=== PATIENT | female | born 1950 | race Two or more races ===

== ENCOUNTER 2023-02-18 18:57 | Emergency (ER) | payer MEDICARE, OTHER ==
[~2023-02-18] VITALS: Ht 165.1 cm; Wt 75.0 kg
[2023-02-18] MEDS ORDERED: KETOROLAC TROMETH 30 MG/ML 1ML VIAL IV ONE (20:00)
[2023-02-18] MEDS ORDERED: ONDANSETRON HCL 4 MG/2 ML VIAL IV ONE (20:00)
[2023-02-18 20:23] LABS: Basophils # (auto) 0.1 10 ^3/uL (0-0.2); Eosinophils # (auto) 0.5 10 ^3/uL (0-0.8); Eosinophils % (auto) 4.6 % (0.0-7.0); Hematocrit 41.5 % (36.0-46.0); Lymphocytes # (auto) 2.8 10 ^3/uL (0.4-5.4); Lymphocytes % (auto) 26.9 % (10.0-50.0); Mean Corpuscular Hemoglobin 30.9 pg (28.0-32.0); Mean Corpuscular Hgb Conc. 33.7 g/dL (32.0-36.0); Mean Corpuscular Volume 91.8 fL (80.0-100.0); Monocytes # (auto) 1.1 10 ^3/uL (0-1.3); Monocytes % (auto) 10.8 % (0.0-12.0); Neutrophils # (auto) 5.8 10 ^3/uL (1.6-8.6); Neutrophils % (auto) 56.7 % (37.0-80.0); Red Blood Cells 4.52 10^6/uL (4.0-5.20); Red Cell Distribution Width 16.5 % (11.8-14.3); White Blood Cell 10.3 10^3/uL (4.4-10.8)
[2023-02-18 20:31] LABS: Albumin 3.5 g/dL (3.4-5.0); Calcium 9.1 mg/dL (8.5-10.1); Potassium 3.4 mmol/L (3.5-5.1)
[2023-02-18 20:34] LABS: BUN/Creatinine Ratio 18.6 (10.0-20.0); Bilirubin, Total 0.5 mg/dL (0.2-1.0); Total Protein 7.3 g/dL (6.4-8.2)
[2023-02-18 20:37] LABS: INR 1.03 (0.9-1.15); Partial Thromboplastin Time 28.1 SEC (24.5-34.5)
[2023-02-18] MEDS ORDERED: DOCU-94 PO (21:47)
[2023-02-19 02:00] VITALS: BP 141/69
== END 2023-02-18 21:48 | disposition home or self-care (01) ==
LOC: EDBD 18:57 → ER 18:57
DX: K59.00 Constipation, unspecified (principal); R06.02 Shortness of breath; Z79.01 Long term (current) use of anticoagulants
CPT/HCPCS: 36415; 71045; 74176; 80053; 83880; 84484; 85025; 85610; 85730

== ENCOUNTER 2023-11-01 12:00 | Inpatient (IN) | payer MEDICARE, MEDICAID ==
[~2023-11-01] VITALS: Ht 165.1 cm; Wt 96.0 kg
[~2023-11-01 12:00] MED LIST: DOCU-94 PO
[2023-11-01 12:54] LABS: Basophils # (auto) 0.2 10 ^3/uL (0-0.2); Basophils % (auto) 1.4 % (0.0-2.0); Eosinophils # (auto) 1.1 10 ^3/uL (0-0.8); Eosinophils % (auto) 9.3 % (0.0-7.0); Hematocrit 44.2 % (36.0-46.0); Hemoglobin 14.4 g/dL (12.2-16.2); Lymphocytes # (auto) 2.2 10 ^3/uL (0.4-5.4); Lymphocytes % (auto) 19.2 % (10.0-50.0); Mean Corpuscular Hemoglobin 29.7 pg (28.0-32.0); Mean Corpuscular Hgb Conc. 32.7 g/dL (32.0-36.0); Mean Corpuscular Volume 90.8 fL (80.0-100.0); Monocytes % (auto) 8.9 % (0.0-12.0); Neutrophils % (auto) 61.2 % (37.0-80.0); Nucleated Red Blood Cells % 0.1 %; Red Blood Cells 4.87 10^6/uL (4.0-5.20); Red Cell Distribution Width 14.6 % (11.8-14.3); White Blood Cell 11.5 10^3/uL (4.4-10.8)
[2023-11-01 13:13] LABS: Chloride 110 mmol/L (98-107); Potassium 4.5 mmol/L (3.5-5.1); Sodium 142 mmol/L (136-145)
[2023-11-01 13:14] LABS: Anion Gap 5 (5-15); Carbon Dioxide 27 mmol/L (20-30)
[2023-11-01] MEDS: CLINDAMYCIN 600MG IV 50 ML IV ONE (13:14)
[2023-11-01 13:15] LABS: Calcium 9.7 mg/dL (8.5-10.1)
[2023-11-01 13:19] LABS: BUN/Creatinine Ratio 19.4 (10.0-20.0); Blood Urea Nitrogen 14 mg/dL (9-23); Glucose 98 mg/dL (74-106)
[2023-11-01 15:22] VITALS: PULSE 67; RESP 24; O2SAT 95
[2023-11-01] MEDS ORDERED: MET50T PO (15:29)
[2023-11-01] MEDS ORDERED: ATOR10TA52 PO (15:29)
[2023-11-01] MEDS ORDERED: CLON0.1T PO (15:29)
[2023-11-01] MEDS ORDERED: CEPH500C PO (15:29)
[2023-11-01] MEDS ORDERED: HYDR-2792 PO (15:29)
[2023-11-01] MEDS ORDERED: BACL10TA PO (15:29)
[2023-11-01] MEDS ORDERED: LISI40TA16 PO (15:29)
[2023-11-01] MEDS ORDERED: AMLO1TAB23 PO (15:29)
[2023-11-01] MEDS ORDERED: ONDA-188 PO (15:29)
[2023-11-01] MEDS ORDERED: HYDROcodone-ACET 5/325MG TAB PO PRN (15:30)
[2023-11-01] MEDS ORDERED: DOCUSATE SOD 100 MG CAP PO PRN (15:30)
[2023-11-01] MEDS ORDERED: hydrALAZINE HCL 20 MG/ML VL IV PRN (15:30)
[2023-11-01] MEDS ORDERED: ACETAMINOPHEN 325 MG TAB PO PRN (15:30)
[2023-11-01] MEDS ORDERED: NITROGLYCERIN 0.4 MG SL TAB SL PRN (15:30)
[2023-11-01] MEDS ORDERED: MORPHINE SULFATE INJ 2 MG/ml SYRG IV PRN (15:30)
[2023-11-01] MEDS: cloNIDine HCL 0.1 MG TAB PO ONE (15:43)
[2023-11-01] MEDS: SODIUM CHLORIDE 0.9% 1,000 ML IV SCH (17:27)
[2023-11-01] MEDS ORDERED: METOPROLOL TARTRATE 50 MG TAB PO ONE (17:45)
[2023-11-01 18:00] VITALS: BP 166/73; PULSE 67; RESP 16; TEMP 97.9; O2SAT 97
[2023-11-01 18:30] VITALS: PULSE 67; RESP 17; O2SAT 94
[2023-11-01] MEDS: amLODIPine BESYLATE 5 MG TAB PO ONE (18:31)
[2023-11-01] MEDS: OXYBUTYNIN CHL 5 MG TAB PO ONE (18:37)
[2023-11-01 20:00] VITALS: BP 132/63; PULSE 61; PULSE 66; RESP 17; TEMP 98.3; O2SAT 96
[2023-11-01 21:00] VITALS: BP 132/63; PULSE 63; RESP 17; TEMP 98.3; O2SAT 96
[2023-11-01] MEDS: CLINDAMYCIN 600MG IV 50 ML IV SCH (21:02)
[2023-11-01] MEDS: BACLOFEN 10 MG TAB PO SCH (21:06)
[2023-11-01] MEDS: METOPROLOL TARTRATE 50 MG TAB PO SCH (21:06)
[2023-11-01] MEDS: ASCORBIC ACID 500 MG TAB PO SCH (21:07)
[2023-11-01] MEDS: LISINOPRIL 20 MG TAB PO SCH (21:08)
[2023-11-01] MEDS ORDERED: OXYBUTYNIN CHL 5 MG TAB PO SCH (22:00)
[2023-11-02] VITALS (10 sets, daily range): BP systolic 127–149; BP diastolic 61–72; PULSE 59–100; RESP 16–19; TEMP 97.4–98.5; O2SAT 92–96
[2023-11-02 05:18] LABS: Basophils # (auto) 0.1 10 ^3/uL (0-0.2); Basophils % (auto) 1.5 % (0.0-2.0); Eosinophils % (auto) 12.7 % (0.0-7.0); Hematocrit 37.8 % (36.0-46.0); Hemoglobin 12.6 g/dL (12.2-16.2); Lymphocytes # (auto) 2.3 10 ^3/uL (0.4-5.4); Lymphocytes % (auto) 28.8 % (10.0-50.0); Mean Corpuscular Hemoglobin 29.7 pg (28.0-32.0); Mean Corpuscular Hgb Conc. 33.3 g/dL (32.0-36.0); Mean Corpuscular Volume 89.3 fL (80.0-100.0); Monocytes # (auto) 0.7 10 ^3/uL (0-1.3); Neutrophils # (auto) 3.9 10 ^3/uL (1.6-8.6); Nucleated Red Blood Cells % 0.1 %; Red Blood Cells 4.23 10^6/uL (4.0-5.20); Red Cell Distribution Width 14.6 % (11.8-14.3); White Blood Cell 8.1 10^3/uL (4.4-10.8)
[2023-11-02 05:40] LABS: Alanine Aminotransferase 30 U/L (7-40); Albumin 3.4 g/dL (3.2-4.8); Alkaline Phosphatase 71 U/L (46-116); Anion Gap 6 (5-15); Aspartate Aminotransferase 25 U/L (13-40); BUN/Creatinine Ratio 21.9 (10.0-20.0); Bilirubin, Total 0.5 mg/dL (0.2-1.0); Blood Urea Nitrogen 14 mg/dL (9-23); Calcium 9.1 mg/dL (8.7-10.4); Carbon Dioxide 24 mmol/L (20-30); Chloride 111 mmol/L (98-107); Glucose 98 mg/dL (74-106); Potassium 3.6 mmol/L (3.5-5.1); Sodium 141 mmol/L (136-145)
[2023-11-02 05:41] LABS: Total Protein 6.3 g/dL (5.7-8.2)
[2023-11-02] MEDS: OXYBUTYNIN CHL 5 MG TAB PO SCH (05:49)
[2023-11-02] MEDS: ZINC SULFATE 220mg CAP or TAB PO SCH (08:56)
[2023-11-02] MEDS: MULTIPLE VITAMIN TAB PO SCH (08:56)
[2023-11-02] MEDS: amLODIPine BESYLATE 5 MG TAB PO SCH (08:58)
[2023-11-02] MEDS: ENOXAPARIN SOD 40 MG/0.4 ML SYRINGE SC SCH (08:58)
[2023-11-02] MEDS ORDERED: ATORVASTATIN 20 MG TAB PO SCH (10:00)
[2023-11-02] MEDS ORDERED: hydrALAZINE HCL 10 MG TAB PO ONE (12:15)
[2023-11-02] MEDS: hydrALAZINE HCL 10 MG TAB PO ONE (15:12)
[2023-11-02] MEDS ORDERED: hydrALAZINE HCL 10 MG TAB PO SCH (22:00)
[2023-11-02] MEDS: hydrALAZINE HCL 10 MG TAB PO SCH (22:09)
[2023-11-02] MEDS: ATORVASTATIN 20 MG TAB PO SCH (22:10)
[2023-11-03] VITALS (9 sets, daily range): BP systolic 123–142; BP diastolic 56–68; PULSE 62–79; RESP 16–18; TEMP 97.6–98.5; O2SAT 90–96
[2023-11-04] VITALS (7 sets, daily range): BP systolic 118–137; BP diastolic 58–68; PULSE 62–81; RESP 15–18; TEMP 97.8–98.5; O2SAT 93–100
== END 2023-11-04 19:42 | DRG 872 ==
LOC: ER 12:00 → EDBD 12:00 → TELE 15:28 → TELE-WESTW 18:09
PROVIDERS: ADMIT Nurse Practitioner Family; ATTEND Family Medicine
PROC: B54MZZA Ultrasonography of Right Upper Extremity Veins, Guidance (ICD-10-PCS; principal; 2023-11-03)
PROC: 05H933Z Insertion of Infusion Device into Right Brachial Vein, Percutaneous Approach (ICD-10-PCS; 2023-11-03)
DX: A41.9 Sepsis, unspecified organism (principal); L03.114 Cellulitis of left upper limb; I69.354 Hemiplegia and hemiparesis following cerebral infarction affecting left non-dominant side; I10 Essential (primary) hypertension; N32.81 Overactive bladder; F32.A Depression, unspecified; F41.9 Anxiety disorder, unspecified; Z74.01 Bed confinement status
CPT/HCPCS: 36415; 80048; 80053; 85025; 87040; 87081; 93971; 96361; 96365; G0378; J3490